=== PATIENT | male | born 1975 | race African-American/Black ===

== ENCOUNTER 2021-03-25 11:38 | Emergency (ER) | payer SELFPAY ==
--- NOTE | 2021-03-25 12:10 | EDM.PDOC ---
ED HPI GENERAL MEDICAL PROBLEM - General Chief Complaint: Drug or Alcohol Abuse Stated Complaint: [facility] Time Seen by Provider: 03/25/21 11:54 Source of Information: Reports: EMS History Limitations: Reports: Altered Mental Status (And is nonverbal and recent spine is very minimally to sternal rub.) - History of Present Illness INITIAL COMMENTS - FREE TEXT/NARRATIVE: The medics suggest that the patient may have been using methamphetamines and alcohol. Onset: Unknown/Unsure Duration: Other (How long he has been unresponsive.) Location: Reports: Generalized (Unresponsive.) Quality: Reports: Other (Unresponsive) Severity: Severe Improves with: Reports: None Worsens with: Reports: None Context: Reports: Other (Apparently patient is known to abuse drugs and meth amphetamines in particular. Also apparently heavy alcohol use over the weekend.). Denies: Activity, Exercise, Lifting, Sick Contact, Trauma Associated Symptoms: Reports: Other (Patient is nonverbal and responds only minimally to sternal rub.) Treatments FITTING ROOM ASSOCIATE: Reports: Other (see below) (Medics have not administered any medications) - Related Data Allergies Allergy/AdvReac Type Severity Reaction Status Date / Time No Known Allergies Allergy Verified 03/25/21 12:12 Home Meds: Home Meds . [Unable to Verify Home Med List] 03/25/21 [History] Social & Family History - Tobacco Use Tobacco Use Status *Q: Current Status Unknown - Recreational Drug Use Recreational Drug Use: Yes Recreational Drug Type: Reports: Methamphetamine ED ROS GENERAL - Review of Systems Review Of Systems: Unable To Obtain (And arrives in the ED unresponsive) Reason Not Obtained: Positive to verbal and physical stimuli - Physical Exam Exam: See Below Exam Limited By: Altered Mental Status General Appearance: Obtunded, Other (Patient arrived in the ED unresponsive verbally and responds only with a minimal moan on sternal rub vital signs show temperature of 36.8. Heart rate 84 and sinus respiratory is 18 with O2 sats of 97% room air. Blood pressure is 115/76) Eye Exam: Bilateral Eye: Abnormal Pupil (Dilated to 9 mm and respond very minimally to light. Eyes were rolled up in his head.), PERRL (Gaze palsy.) Throat/Mouth: Normal Inspection, Normal Lips, Normal Oropharynx. No: Evidence of Tongue Biting Head Exam: Atraumatic, Normocephalic, Other Neck: Normal Inspection, Supple (Overt signs of head or facial trauma.), Non- Tender, Full Range of Motion. No: Lymphadenopathy (L), Lymphadenopathy (R) Respiratory/Chest: No Respiratory Distress, Lungs Clear, No Accessory Muscle Use, Rhonchi, Other (Palpable deformities of his ribs sternum. ) Cardiovascular: Normal Peripheral Pulses, Regular Rate, Rhythm, No Edema, No Gallop, No Murmur, No Rub GI/Abdominal: Normal Bowel Sounds, Soft, Non-Tender, No Organomegaly, No Mass, Pelvis Stable, Other (K. [place] abdomen without scars) (Male) Exam: No Hernia, Circumcised Neuro Exam (Abbreviated): Unresponsive (Is very minimally with a moan to deep sternal rub.) DTR: 0: Bicep (R), Bicep (L), Patella (R), Patella (L), Achilles (R), Achilles (L) (Areflexic.) Back Exam: Normal Inspection Extremities: Normal Inspection, Normal Range of Motion, Non-Tender, No Pedal Edema, Other (No outward signs of any trauma to the extremities.) Skin Exam: Warm, Dry, Intact, Normal Color #1 Interpretation EKG Date: 03/25/21 Time: 12:34 Rhythm: NSR Rate (Beats/Min): 65 [place]: Normal P-Wave: Enlarged QRS: Other (Sitter left atrial hypertrophy RSR prime wave V1 V2 consider normal variant. Left ventricular hypertrophy pattern but the patient is very thin.) ST-T: Elevated (ST segment elevation in V4 V5 V6 and lead I. This is associated with a diffuse early repolarization pattern. Consider anterior apical ischemia.) QT: Normal EKG Interpretation Comments: Abnormal ECG. Course - Vital Signs Last Recorded V/S: Last Vital Signs Temp 36.8 C 03/25/21 11:44 Pulse 84 03/25/21 11:44 Resp 18 03/25/21 11:44 BP Pulse Ox 97 03/25/21 11:44 - Orders/Labs/Meds Orders: Active Orders 24 hr Category Date Time Status EKG Documentation Completion [RC] STAT Care 03/25/21 12:02 Active Insert Ann Catheter [Insert Urinary Catheter] [OM.PC] Care 03/25/21 12:55 Ordered Stat Urinary Catheter Assessment [RC] ASDIRECTED Care 03/25/21 12:55 Active Dextrose 5%-0.9% NaCl [Dextrose 5%-Normal Saline] 1,000 Med 03/25/21 12:15 Active ml IV ASDIRECTED Medication Orders Dextrose/Sodium Chloride (Dextrose 5%-Normal Saline) 1,000 mls @ 125 mls/hr IV ASDIRECTED GLORIA Last Admin: 03/25/21 12:16 Dose: 125 mls/hr Documented by: JULITA Labs: Laboratory Tests 03/25/21 03/25/21 03/25/21 Range/Units 11:45 11:45 11:45 WBC 4.83 (4.23-9.07) K/mm3 RBC 4.90 (4.63-6.08) M/mm3 Hgb 14.1 (13.7-17.5) gm/dl Hct 43.1 (40.1-51.0) % MCV 88.0 (79.0-92.2) fl MCH 28.8 (25.7-32.2) pg MCHC 32.7 (32.2-35.5) g/dl RDW Std Deviation 44.8 H (35.1-43.9) fL Plt Count 292 (163-337) K/mm3 MPV 9.0 L (9.4-12.3) fl Neut % (Auto) 40.6 (34.0-67.9) % Lymph % (Auto) 37.1 (21.8-53.1) % Bowman % (Auto) 15.5 H (5.3-12.2) % Eos % (Auto) 6.2 (0.8-7.0) Baso % (Auto) 0.4 (0.1-1.2) % Neut # (Auto) 1.96 (1.78-5.38) K/mm3 Lymph # (Auto) 1.79 (1.32-3.57) K/mm3 Bowman # (Auto) 0.75 (0.30-0.82) K/mm3 Eos # (Auto) 0.30 (0.04-0.54) K/mm3 Baso # (Auto) 0.02 (0.01-0.08) K/mm3 Manual Slide Review Abnormal smear PT 9.7 (9.7-12.0) SECONDS INR < 0.93 APTT 22.5 (21.7-31.4) SECONDS Sodium 146 H (136-145) mEq/L Potassium 3.6 (3.5-5.1) mEq/L Chloride 110 H (98-107) mEq/L Carbon Dioxide 23 (21-32) mEq/L Anion Gap 16.6 H (5-15) BUN 16 (7-18) mg/dL Creatinine 1.1 (0.7-1.3) mg/dL Est Cr Clr Drug Dosing 91.27 mL/min Estimated GFR (MDRD) > 60 (>60) mL/min BUN/Creatinine Ratio 14.5 (14-18) Glucose 85 (70-99) mg/dL Calcium 8.8 (8.5-10.1) mg/dL Total Bilirubin 0.1 L (0.2-1.0) mg/dL AST 23 (15-37) U/L ALT 29 (16-63) U/L Alkaline Phosphatase 80 (46-116) U/L Troponin I < 0.017 (0.00-0.056) ng/mL C-Reactive Protein <0.2 (<1.0) mg/dL Total Protein 6.9 (6.4-8.2) g/dl Albumin 3.7 (3.4-5.0) g/dl Globulin 3.2 gm/dL Albumin/Globulin Ratio 1.2 (1-2) Urine Opiates Screen (ZBXXEG=005) Ur Buprenorphine Scrn (CUTOFF=10) Ur Oxycodone Screen (PYE1IU=690) Urine Methadone Screen (FAF7GU=092) Ur Propoxyphene Screen (XDGXYH=759) Ur Barbiturates Screen (OVJGRP=321) Ur Tricyclics Screen (KRFVPA=399) Ur Phencyclidine Scrn (CUTOFF=25) Ur Amphetamine Screen (RHTTQZ=740) U Methamphetamines Scrn (DZSDBS=421) U Benzodiazepines Scrn (UFPOJU=912) U Cocaine Metab Screen (NBLQBF=270) U Marijuana (THC) Screen (CUTOFF=50) Ethyl Alcohol 0.29 (0.00) gm% 03/25/21 Range/Units 12:50 WBC (4.23-9.07) K/mm3 RBC (4.63-6.08) M/mm3 Hgb (13.7-17.5) gm/dl Hct (40.1-51.0) % MCV (79.0-92.2) fl MCH (25.7-32.2) pg MCHC (32.2-35.5) g/dl RDW Std Deviation (35.1-43.9) fL Plt Count (163-337) K/mm3 MPV (9.4-12.3) fl Neut % (Auto) (34.0-67.9) % Lymph % (Auto) (21.8-53.1) % Bowman % (Auto) (5.3-12.2) % Eos % (Auto) (0.8-7.0) Baso % (Auto) (0.1-1.2) % Neut # (Auto) (1.78-5.38) K/mm3 Lymph # (Auto) (1.32-3.57) K/mm3 Bowman # (Auto) (0.30-0.82) K/mm3 Eos # (Auto) (0.04-0.54) K/mm3 Baso # (Auto) (0.01-0.08) K/mm3 Manual Slide Review PT (9.7-12.0) SECONDS INR APTT (21.7-31.4) SECONDS Sodium (136-145) mEq/L Potassium (3.5-5.1) mEq/L Chloride (98-107) mEq/L Carbon Dioxide (21-32) mEq/L Anion Gap (5-15) BUN (7-18) mg/dL Creatinine (0.7-1.3) mg/dL Est Cr Clr Drug Dosing mL/min Estimated GFR (MDRD) (>60) mL/min BUN/Creatinine Ratio (14-18) Glucose (70-99) mg/dL Calcium (8.5-10.1) mg/dL Total Bilirubin (0.2-1.0) mg/dL AST (15-37) U/L ALT (16-63) U/L Alkaline Phosphatase (46-116) U/L Troponin I (0.00-0.056) ng/mL C-Reactive Protein (<1.0) mg/dL Total Protein (6.4-8.2) g/dl Albumin (3.4-5.0) g/dl Globulin gm/dL Albumin/Globulin Ratio (1-2) Urine Opiates Screen Negative (UCASYA=391) Ur Buprenorphine Scrn Negative (CUTOFF=10) Ur Oxycodone Screen Negative (AAL7GW=082) Urine Methadone Screen Negative (CAV2EQ=689) Ur Propoxyphene Screen Negative (KSNGMB=830) Ur Barbiturates Screen Negative (ABGVJF=786) Ur Tricyclics Screen Negative (QQZOLO=723) Ur Phencyclidine Scrn Negative (CUTOFF=25) Ur Amphetamine Screen Presumptive positive H (BMJEYV=300) U Methamphetamines Scrn Presumptive positive H (OOBHHJ=341) U Benzodiazepines Scrn Negative (KGZQPV=109) U Cocaine Metab Screen Negative (OOYBOH=357) U Marijuana (THC) Screen Negative (CUTOFF=50) Ethyl Alcohol (0.00) gm% Meds: Medications Generic Name Dose Route Start Last Admin Trade Name Freq PRN Reason Stop Dose Admin Dextrose/Sodium Chloride 1,000 mls @ 125 mls/hr 03/25/21 12:15 03/25/21 12:16 Dextrose 5%-Normal Saline IV 125 mls/hr ASDIRECTED GLORIA Administration - Radiology Interpretation Free Text/Narrative:: 45-year-old male of -[place] descent presents to the ED unresponsive to verbal stimuli and minimally responsive to firm sternal rub. Pupils are dilated to 9 mm and eyes are rolled up in his head without any gaze palsy. There are no outward signs of head or facial trauma or extremity trauma. The history suggest that he uses recreational drugs particularly methamphetamines and alcohol. His vital signs are stable at this point time. IV will be D5 normal saline at [address] head to be done. Routine labs ordered including an ECG and chest x-ray. - Re-Assessments/Exams Free Text/Narrative Re-Assessment/Exam: 03/25/21 12:45 ECG is abnormal with ST segment elevation in V4, V5, V6 and lead I. There is an associated diffuse early repolarization pattern which I suspect is the cause of this but 1 must consider possible anterior apical ischemia. Especially in light of possible use of methamphetamines to excess. Cardiac markers have been ordered with initial lab work. His chest x-ray reveals hyperinflated lung fung. Since he noted within the right lung apex raising the possibility of a subpleural bleb but no pneumothorax. Cardiac silhouette is normal mediastinum is normal. Lung parenchyma are clear. CT scan of the head was also done. It reveals normal sulci and convexities for his age. There is no intracranial bleeding or mass-effect. Minimal basal ganglia calcification noted. There is no osseous abnormalities to suggest skull fracture or injury. Visualized mastoid sinuses and paranasal sinuses are clear. Cerumen is appreciated within both external auditory canals. 03/25/21 12:48 White count is 4.83 with a auto differential of 40% neutrophils and 37% lymphocytes and mild increased monocytes at 15%. Hemoglobin is 14.1 with hematocrit of 43.1 platelet count 292,000. PT is 9.7 with an INR of less than than 0.93 PTT is 22.5. Sodium slightly elevated at 146. Potassium 3.6. Chloride 110. Bicarb 23. Anion gap is 16.6. BUN is 16 with a creatinine of 1.1 and a GFR greater than 60. Glucose is 85 with a calcium of 8.8. Total bilirubin was less than 0.1. Liver function otherwise normal. Troponin I is less than 0.017. C-reactive protein less than 0.2. Total protein 6.9 with an albumin fraction of 3.7 blood alcohol is currently 0.29 g%. Note troponin was normal in spite of abnormal ECG. 03/25/21 13:14 patient did arouse with bladder catheterization for urine sampling. He could speak normally to the nurse at that time. Promptly fell back asleep after the procedure was done. 03/25/21 13:58 Urine drug screen is presumptively positive for amphetamines and methamphetamines. No opioids identified. Blood alcohol is 0.29 g% 03/25/21 15:43 patient suddenly awoke within the last 10 minutes and is quite adamant about getting out of the department. He is alert oriented able to speak normally and make sense. He is walking and talking. He admits to recent alcohol use and likely crashed because of recent methamphetamine use. He was difficult to arouse but vital signs remained stable with during his emergency room visit and labs confirmed elevated blood alcohol at 0.29 g% and methamphetamines in his urinalysis. No other abnormalities were identified. The patient will therefore be discharged from the emergency department at this time Departure - Departure Time of Disposition: 15:39 Disposition: Home, Self-Care 01 Condition: Fair Clinical Impression: Methamphetamine use Acute alcohol intoxication Qualifiers: Complication of substance-induced condition: uncomplicated Qualified Code(s): F10.920 - Alcohol use, unspecified with intoxication, uncomplicated - Discharge Information *PRESCRIPTION DRUG MONITORING PROGRAM REVIEWED*: Not Applicable *COPY OF PRESCRIPTION DRUG MONITORING REPORT IN PATIENT JIM: Not Applicable Instructions: Alcohol Intoxication, [id number], Methamphetamines Use Disorder Referrals: PCP,None [Primary Care Provider] - Forms: ED Department Discharge Additional Instructions: Evaluation in the emergency room today in regards to being found unresponsive. It is unclear to me who called the ambulance which brought you to the hospital early before noon today. Your pupils were found to be dilated and eyes rolled back up in your head. Vital signs were otherwise normal. Lab work reveals an elevated blood alcohol level at 0.29 g% with the legal limit to operate a motor vehicle at 0.08 g%. You were found to have methamphetamines in your system indicating use with amphetamines sometime within the last 48 hours. When you walk in the emergency room you were confused disoriented as to how and where you were for sure. We found no major abnormalities in your lab tests or chest x-ray and you do not appear to be ill. At your request you will be discharged from the emergency room with no follow-up required. Sepsis Event Note (ED) - Evaluation Sepsis Screening Result: No Definite Risk - Focused Exam Vital Signs: Vital Signs Temp Pulse Resp Pulse Ox 03/25/21 11:44 36.8 C 84 18 97 - My Orders Last 24 Hours: My Active Orders 03/25/21 12:02 EKG Documentation Completion [RC] STAT 03/25/21 12:15 Dextrose 5%-0.9% NaCl [Dextrose 5%-Normal Saline] 1,000 ml IV ASDIRECTED 03/25/21 12:55 Insert Ann Catheter [Insert Urinary Catheter] [OM.PC] Stat Urinary Catheter Assessment [RC] ASDIRECTED - Assessment/Plan Last 24 Hours: My Active Orders 03/25/21 12:02 EKG Documentation Completion [RC] STAT 03/25/21 12:15 Dextrose 5%-0.9% NaCl [Dextrose 5%-Normal Saline] 1,000 ml IV ASDIRECTED 03/25/21 12:55 Insert Ann Catheter [Insert Urinary Catheter] [OM.PC] Stat Urinary Catheter Assessment [RC] ASDIRECTED
[2021-03-25] MEDS ORDERED: Dextrose 5%-0.9% NaCl 1,000 ML IV SCH (12:15)
--- NOTE | 2021-03-25 12:50 | CT ---
Head CT Technique: Multiple axial sections were obtained to the brain. Reconstructed coronal and sagittal images were obtained. Comparison: No prior intracranial imaging is available. Findings: Ventricles along with basal cisterns and sulci over the convexities are within normal limits for the patient's age. No abnormal parenchymal densities are seen. No evidence of intracranial hemorrhage is seen. No midline shift or mass-effect is seen. Minimal basal ganglia calcification is noted. Bone window settings were reviewed. No acute calvarial abnormality is seen. Visualized mastoid sinuses and paranasal sinuses are clear. Cerumen is noted within both external auditory canals. Impression: 1. No acute intracranial abnormality is appreciated. 2. Incidental note of cerumen within both external auditory canals. Diagnostic code #2
--- NOTE | 2021-03-25 13:05 | CR ---
Chest: Portable view of the chest was obtained. Comparison: No prior chest imaging is available. Lucency is noted within the right lung apex raising the possibility of a subpleural bleb. Lungs otherwise are clear. Heart size and mediastinum are normal. No acute osseous abnormality is appreciated. Impression: 1. Possible subpleural bleb within the right upper chest. 2. Nothing acute is otherwise seen on portable chest x-ray. Diagnostic code #2
== END 2021-03-25 15:45 | disposition home or self-care (01) ==
LOC: JD.ED 11:38
DX: F10.129 Alcohol abuse with intoxication, unspecified (principal); F15.90 Other stimulant use, unspecified, uncomplicated; Y90.5 Blood alcohol level of 100-119 mg/100 ml
CPT/HCPCS: 36415; 70450; 71045; 80053; 80306; 80307; 84484; 85025; 85610; 85730; 86140; 93005; 99285; J7042; 93010; 99284